=== PATIENT | female | born 1980 | race Caucasian/White ===

== ENCOUNTER → 2016-06-03 | Outpatient (CLI) | payer MEDICAID | LOC: FIMAGING 10:44 | PROVIDERS: ATTEND Obstetrics & Gynecology | DX: O99.283 Endocrine, nutritional and metabolic diseases complicating pregnancy, third trimester (principal); O24.013 Pre-existing type 1 diabetes mellitus, in pregnancy, third trimester; O99.213 Obesity complicating pregnancy, third trimester; O09.523 Supervision of elderly multigravida, third trimester; E10.9 Type 1 diabetes mellitus without complications; E03.9 Hypothyroidism, unspecified; Z3A.35 35 weeks gestation of pregnancy ==

== ENCOUNTER 2016-06-27 07:40 | Inpatient (IN) | payer MEDICAID ==
[2016-06-27] MEDS ORDERED: OLIVE OIL 118 ML BTL MISC PRN (08:15)
[2016-06-27] MEDS ORDERED: EPSOM SALT 454 GM TP PRN (08:15)
[2016-06-27] MEDS ORDERED: LR 1,000 ML IV PRN (08:15)
[2016-06-27] MEDS ORDERED: TERBUTALINE SULFATE 1 MG/ML VIAL IV PRN (08:15)
[2016-06-27] MEDS ORDERED: OXYTOCIN/RINGERS LACTATE 1,000 ML IV PRN (08:15)
[2016-06-27] MEDS ORDERED: LIDOCAINE 1% 30 ML SDV SC PRN (08:15)
[2016-06-27 09:16] LABS: % IMMATURE GRANULYOCYTES 0.8 % (0.0-1.1); ADD DIFF? NO; ADD MORPH? NO; ADD SCAN? NO; ATYPICAL LYMPHOCYTE FLAG 0 (0-99); FRAGMENT RBC FLAG 0 (0-99); HEMATOCRIT 39.1 % (38.0-47.0); HEMOGLOBIN 13.2 g/dL (12.6-16.3); LEFT SHIFT FLG 10 (0-99); LIPEMIA HEMOLYSIS FLAG 90 (0-99); MEAN CELL HEMOGLOBIN 30.3 pg (27.9-34.1); MEAN CELL HEMOGLOBIN CONCENTR. 33.8 g/dL (32.4-36.7); MEAN CELL VOLUME 89.9 fL (81.5-99.8); MEAN PLATELET VOLUME 12.3 fL (8.7-11.7); PLATELET CLUMPS FLAG 0 (0-99); PLATELET COUNT 182 10^3/uL (150-400); RED BLOOD CELL COUNT 4.35 10^6/uL (4.18-5.33)
[2016-06-27 10:00] LABS: GLUCOSE 106 mg/dL (70-100)
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
[2016-06-27] MEDS ORDERED: D5W LR 1,000 ML IV SCH (10:30)
[2016-06-27] MEDS ORDERED: INSULIN REGULAR HUMAN 100 UNIT in NS 100 ML IV SCH (10:30)
[2016-06-27] MEDS ORDERED: LR 500 ML IV PRN (10:33)
[2016-06-27] MEDS ORDERED: OXYTOCIN/RINGERS LACTATE 500 ML IV SCH (11:00)
--- NOTE | 2016-06-27 14:03 | OBPROG ---
OBG Progress Note Assessment/Plan: Assessment: 36 y/o @ 39 weeks with A2DM and SROM with augmentation of labor. Plan: Continue pitocin, pt may have an epidural in 30 minutes, 2 hours after her lunch. Some BP have been borderline with SBP 140's will add PIH labs to this am 's draw. status reassuring. 06/27/16 14:01 Subjective: Pt is feeling painful contractions but coping well now with NO. She has ambulated, tried hydrotherapy and position change. Objective: 06/27/16 09:00 06/27/16 09:45 Patient ABO/Rh AB POSITIVE 06/27/16 09:00 - SVE Dilation (cm): 5 Effacement (%): 90 Station: -1 Current Contraction Pattern: Regular (Q 2-3) FHR (bpm): 140 FHR Pattern Variability: Moderate FHR Category: 1 Membranes: AROM (pt had a bulging forebag, I ruptured for clear fluid) Amniotic Fluid Color: Clear ICD10 Worksheet Patient Problems: Problems Problem Status Onset Chest wall contusion Acute Closed fracture of left distal radius Acute Elbow contusion Acute
[2016-06-27 14:57] LABS: ALANINE AMINOTRANSFERASE 26 IU/L (9-52); ASPARTATE AMINOTRANSFERASE 22 IU/L (14-46); BILIRUBIN,TOTAL 0.4 mg/dL (0.1-1.4); BILIRUBIN-CONJUGATED 0.4 mg/dL (0.0-0.5); CREATININE 0.7 mg/dL (0.6-1.0); GLOMERULAR FILTRATION RATE > 60; LACTATE DEHYDROGENASE 387 IU/L (313-618); URIC ACID 5.7 mg/dL (2.5-6.8)
[2016-06-27] MEDS ORDERED: fentaNYL 2MCG/ML/BUP 0.1% RTU 100 ML BAG EP ONE (15:23)
[2016-06-27] MEDS ORDERED: PHENYLEPHRINE HCL 100 MCG/ML SYR ONE ×2 (15:23→15:34)
[2016-06-27] MEDS ORDERED: BUPIVACAINE 0.25% 30 ML SDV ONE (15:23)
[2016-06-27] MEDS ORDERED: fentaNYL 100 MCG/2 ML INJ ONE (15:24)
--- NOTE | 2016-06-27 16:24 | OBPROG ---
OBG Progress Note Assessment/Plan: Assessment: 36 y/o @ 39 weeks with A2DM and SROM with augmentation of labor. Plan: deceleration was likely secondary to post-epidural hypotension. Baby is now a Category 1 after O2, position change and phenylephrine. We will observe x 30-40 minutes and may re start pitocin if contractions have decreased. 06/27/16 14:01 06/27/16 16:25 Subjective: I was called emergently to patient's bedside due to deceleration with hypotension post-epidural. She was on her hands and knees and had received phenylephrine. She is beginning to feel less discomfort with contractions. Objective: 06/27/16 09:00 06/27/16 09:45 Patient ABO/Rh AB POSITIVE 06/27/16 09:00 Uric Acid 5.7 mg/dL (2.5-6.8) 06/27/16 09:45 Total Bilirubin 0.4 mg/dL (0.1-1.4) 06/27/16 09:45 Conjugated Bilirubin 0.4 mg/dL (0.0-0.5) 06/27/16 09:45 Unconjugated Bilirubin 0.0 mg/dL (0.0-1.1) 06/27/16 09:45 AST 22 IU/L (14-46) 06/27/16 09:45 ALT 26 IU/L (9-52) 06/27/16 09:45 Lactate Dehydrogenase 387 IU/L (313-618) 06/27/16 09:45 - SVE Dilation (cm): 6 Effacement (%): 90 Station: 0 Current Contraction Pattern: Regular (q3-4) FHR (bpm): 140 FHR Pattern Variability: Moderate FHR Category: 1 (currently cat 1, had a 6 minute decel to 60's) Membranes: SROM Amniotic Fluid Color: Clear ICD10 Worksheet Patient Problems: Problems Problem Status Onset Chest wall contusion Acute Closed fracture of left distal radius Acute Elbow contusion Acute
[2016-06-27] MEDS ORDERED: LIDOCAINE 1% 30 ML SDV ONE (17:30)
[2016-06-27] MEDS ORDERED: TERBUTALINE SULFATE 1 MG/ML VIAL ONE (17:31)
[2016-06-27] MEDS ORDERED: OLIVE OIL 118 ML BTL ONE (17:31)
[2016-06-27] MEDS ORDERED: AMMONIA AROMATIC 1 EACH AMP IH ONE (17:31)
[2016-06-27] MEDS ORDERED: OXYTOCIN 10 UNIT/ML VIAL ONE (17:32)
[2016-06-27] MEDS ORDERED: MISOPROSTOL 200 MCG TAB ONE (17:32)
[2016-06-27] MEDS ORDERED: PHENYLEPHRINE HCL 100 MCG/ML SYR IVP PRN (18:21)
[2016-06-27] MEDS ORDERED: ONDANSETRON 4 MG/2 ML VIAL IVP PRN ×2 (18:21→21:49)
[2016-06-27] MEDS ORDERED: LR 500 ML IV SCH (18:30)
[2016-06-27] MEDS ORDERED: fentaNYL 2MCG/ML/BUP 0.1% RTU 100 ML EP SCH (18:30)
--- NOTE | 2016-06-27 18:30 | PREANESOB ---
Obstetric Pre-Anesthesia Info - General Info Proposed Procedure: Labor and delivery with pitocin. : 3 Para: 0 WBD: 39 - Info Status: Full Term Monitors: External FHR Baseline (bpm): 150 FHR Pattern: Reassuring - Labor Status Cervical Dilation per last OB SVE: 5 Station per last OB SVE: 0 Amniotic Fluid Color: Clear Pitocin: In Use Indications for Labor Analgesia: Induction of Labor, Pain Control Labor Epidural: Proposed Anesthesia ROS: Induction of labor for spontaneous rupture of membranes. Gestational diabetes. Hypothyroid. Allergies/Adverse Reactions: Allergy/AdvReac Type Severity Reaction Status Date / Time erythromycin base Allergy Verified 06/16/15 22:51 sulfamethoxazole Allergy Verified 06/16/15 22:51 [From ] trimethoprim [From ] Allergy Verified 06/16/15 22:51 Home Medications: Medication Instructions Recorded Acyclovir 400 mg PO DAILY 06/27/16 Insulin Lispro [Humalog] 40 unit SQ DAILY 06/27/16 Levothyroxine [Synthroid 200 mcg 275 mcg PO DAILY06 06/27/16 (*)] Vit27&Calcium/Iron/FA 1 each PO DAILY 06/27/16 [ Rx 1 Tablet (RX)] Visit Medications: Generic Name Dose Route Start Last Admin Trade Name Freq PRN Reason Stop Dose Admin Diphenhydramine HCl 25 - 50 mg 06/27/16 18:21 Benadryl Injection IVP 12/24/16 18:20 Q6HRS PRN Itching Lactated Ringer's 1,000 mls @ 0 mls/hr 06/27/16 08:15 Lr IV 12/24/16 08:14 PRN PRN SEE PROTOCOL CONDITIONS Protocol Per Protocol Oxytocin/Lactated Ringer's 1,000 mls @ 150 mls/hr 06/27/16 08:15 Pitocin 20 Units/Lr (Premix) IV PRN PRN Post- bleeding Insulin Human Regular 100 unit 101 mls @ 0 mls/hr 06/27/16 10:30 / Sodium Chloride IV 12/24/16 10:29 CONT OLENA Protocol As Directed Dextrose/Lactated Ringer's 1,000 mls @ 125 mls/hr 06/27/16 10:30 D5w Lr IV 12/24/16 10:29 CONT OLENA Lactated Ringer's 500 mls @ 500 mls/hr 06/27/16 10:33 Lr IV PRN PRN Maternal Hypotension Oxytocin/Lactated Ringer's 500 mls @ 0 mls/hr 06/27/16 11:00 06/27/16 11:00 Pitocin 30 Units/Lr (Premix) IV 12/24/16 10:59 500 mls CONT OLENA Administration Protocol Per Protocol Fentanyl/Bupivacaine HCl 100 mls @ 0 mls/hr 06/27/16 18:30 Fentanyl/Bupivacaine/Ns 2 Mcg/Ml 0.1% (Premix EP 07/07/16 18:29 CONT OLENA Protocol As Directed Lactated Ringer's 500 mls @ 0 mls/hr 06/27/16 18:30 Lr IV 12/24/16 18:29 CONT OLENA As Directed Ibuprofen 600 mg 06/27/16 08:15 Motrin PO 12/24/16 08:14 Q6HRS PRN post , inflammation Lidocaine HCl 30 ml 06/27/16 08:15 Lidocaine Hcl 1% SC 12/24/16 08:14 ONCE PRN Episiotomy Magnesium Sulfate 454 gm 06/27/16 08:15 Epsom Salt TP 12/24/16 08:14 PRN PRN perineal discomfort Soledad Oil 118 ml 06/27/16 08:15 Sweet Oil MISC 12/24/16 08:14 ONCE PRN preneal massage Ondansetron HCl 4 mg 06/27/16 18:21 Zofran IVP 12/24/16 18:20 Q4HRS PRN Nausea/Vomiting, Can't Take PO Phenylephrine HCl 100 mcg 06/27/16 18:21 Jose-Synephrine IVP 12/24/16 18:20 .Q2M PRN Hypotension Terbutaline Sulfate 0.25 mg 06/27/16 08:15 Brethine IV 12/24/16 08:14 ONCE PRN Tachysystole Discontinued Medications Generic Name Dose Route Start Last Admin Trade Name Freq PRN Reason Stop Dose Admin Ammonia (Aromatic Spirit) Confirm 06/27/16 17:31 Ammonia Aromatic Administered 06/27/16 17:32 Dose 1 each IH .STK-MED ONE Bupivacaine HCl Confirm 06/27/16 15:23 Sensorcaine 0.25% Sdv Administered 06/27/16 15:24 Dose 30 ml .ROUTE .STK-MED ONE Ephedrine Sulfate Confirm 06/27/16 17:31 Ephedrine Sulfate Administered 06/27/16 17:32 Dose 50 mg .ROUTE .STK-MED ONE Fentanyl Confirm 06/27/16 15:24 Sublimaze Administered 06/27/16 15:25 Dose 100 mcg .ROUTE .STK-MED ONE Fentanyl/Bupivacaine HCl Confirm 06/27/16 15:23 Fentanyl/Bupivacaine/Ns 2 Mcg/Ml 0.1% (Premix Administered 06/27/16 15:24 Dose 100 ml EP .STK-MED ONE Lidocaine HCl Confirm 06/27/16 17:30 Lidocaine Hcl 1% Administered 06/27/16 17:31 Dose 30 ml .ROUTE .STK-MED ONE Misoprostol Confirm 06/27/16 17:32 Cytotec Administered 06/27/16 17:33 Dose 800 mcg .ROUTE .STK-MED ONE Soledad Oil Confirm 06/27/16 17:31 Sweet Oil Administered 06/27/16 17:32 Dose 118 ml .ROUTE .STK-MED ONE Oxytocin Confirm 06/27/16 17:32 Pitocin Administered 06/27/16 17:33 Dose 40 unit .ROUTE .STK-MED ONE Phenylephrine HCl Confirm 06/27/16 15:23 Jose-Synephrine Administered 06/27/16 15:24 Dose 1,000 mcg .ROUTE .STK-MED ONE Phenylephrine HCl Confirm 06/27/16 15:34 Jose-Synephrine Administered 06/27/16 15:35 Dose 1,000 mcg .ROUTE .STK-MED ONE Terbutaline Sulfate Confirm 06/27/16 17:31 Brethine Administered 06/27/16 17:32 Dose 1 mg .ROUTE .STK-MED ONE - Anesthesia History Response to Local Anesthetics: Normal - Social History Substance Use/Abuse: Denies - Focused Exam Blood Pressure: 147/83 Heart Rate: 125 Height/Weight (Nursing): Height 167.64 cm Weight 122.47 kg Physical Exam: Within normal limits. ASA Status: II Labs: 06/27/16 09:00 06/27/16 09:45 Patient ABO/Rh AB POSITIVE 06/27/16 09:00 Uric Acid 5.7 mg/dL (2.5-6.8) 06/27/16 09:45 Total Bilirubin 0.4 mg/dL (0.1-1.4) 06/27/16 09:45 Conjugated Bilirubin 0.4 mg/dL (0.0-0.5) 06/27/16 09:45 Unconjugated Bilirubin 0.0 mg/dL (0.0-1.1) 06/27/16 09:45 AST 22 IU/L (14-46) 06/27/16 09:45 ALT 26 IU/L (9-52) 06/27/16 09:45 Lactate Dehydrogenase 387 IU/L (313-618) 06/27/16 09:45 - Plan Anesthetic Plan: CSE Consent Signed and on Chart: Yes Patient/Guardian Understands and Agrees to Plan: Yes
--- NOTE | 2016-06-27 18:57 | POSTANESTH ---
Post Anesthetic Evaluation Cardiovascular Status: Normal, Stable Respiratory Status: Normal, Stable, Similar to Pre-op Cond. Level of Consciousness/Mental Status: Can Participate in Eval, Alert and Oriented Pain Control: Adequate, Prn Tx Ordered Nausea/Vomiting Control: Adequate, Prn Tx Ordered Complications Possibly Related to Anesthesia: None Noted (Tolerated CSE well, stable after phenylephrine x 2, comfortable.)
[2016-06-27] MEDS ORDERED: ACETAMINOPHEN 500 MG TAB PO ONE (19:30)
--- NOTE | 2016-06-27 22:23 | OBPROG ---
OBG Progress Note Assessment/Plan: Assessment: 36 y/o @ 39 weeks with A2DM and SROM with augmentation of labor. Plan: Pt and baby are stable now and she is making good progress on pitocin. Will re check in 1 hour, status reassuring. 06/27/16 14:01 06/27/16 16:25 06/27/16 22:22 Subjective: Pt is comfortable with her epidural and is breathing better sitting upright. Objective: 06/27/16 09:00 06/27/16 09:45 Patient ABO/Rh AB POSITIVE 06/27/16 09:00 Uric Acid 5.7 mg/dL (2.5-6.8) 06/27/16 09:45 Total Bilirubin 0.4 mg/dL (0.1-1.4) 06/27/16 09:45 Conjugated Bilirubin 0.4 mg/dL (0.0-0.5) 06/27/16 09:45 Unconjugated Bilirubin 0.0 mg/dL (0.0-1.1) 06/27/16 09:45 AST 22 IU/L (14-46) 06/27/16 09:45 ALT 26 IU/L (9-52) 06/27/16 09:45 Lactate Dehydrogenase 387 IU/L (313-618) 06/27/16 09:45 Temp Pulse Resp BP Pulse Ox 125 H 147/83 H 06/27/16 18:54 06/27/16 18:54 - SVE Dilation (cm): 9 Effacement (%): 100 Station: +1 Current Contraction Pattern: Regular (Q 4) FHR (bpm): 150 FHR Pattern Variability: Moderate FHR Category: 1 Membranes: SROM Amniotic Fluid Color: Clear ICD10 Worksheet Patient Problems: Problems Problem Status Onset Chest wall contusion Acute Closed fracture of left distal radius Acute Elbow contusion Acute
[2016-06-28] MEDS ORDERED: fentaNYL 100 MCG/2 ML INJ ONE ×2 (00:13→03:31)
[2016-06-28] MEDS: GENTAMICIN 80 MG/NACL 100 ML IV SCH ×3 (00:39→16:40)
[2016-06-28] MEDS: AMPICILLIN SODIUM 2 GM in NS 100 ML IV SCH ×4 (00:40→19:24)
[2016-06-28] MEDS ORDERED: LR 500 ML IV ONE (02:10)
[2016-06-28] MEDS ORDERED: ceFAZolin 2 GM/DEXTROSE 100 ML IV ONE (02:10)
[2016-06-28] MEDS ORDERED: HEMABATE 250 MCG/1 ML AMP IM ONE (02:13)
[2016-06-28] MEDS ORDERED: LR 1,000 ML IV SCH (02:30)
[2016-06-28] MEDS ORDERED: LIDO/EPI 2% **for epidural** 20 ML SDV ONE (03:31)
[2016-06-28] MEDS ORDERED: morphINE PF 5 MG/10 ML INJ ONE (03:52)
[2016-06-28] MEDS ORDERED: ONDANSETRON 4 MG/2 ML VIAL ONE (04:09)
[2016-06-28 04:31] LABS: BASE EXCESS CORD -4.2 mEq/L (-13.6--3.2); CORD BLOOD PCO2 69.4 mmHg (37-60); PH ARTERIAL CORD BLOOD 7.2 (7.10-7.37)
[2016-06-28 04:34] LABS: PH VENOUS CORD BLOOD 7.29 (7.20-7.42)
[2016-06-28] MEDS ORDERED: PROPOFOL 200 MG/20 ML VIAL ONE (04:43)
[2016-06-28] MEDS ORDERED: SIMETHICONE 80 MG TAB CHEW PO PRN (05:23)
--- NOTE | 2016-06-28 05:23 | OBPROC ---
- Delivery Pre-op Diagnoses: IUP @ 39 weeks, arrest of dilation and chorioamnionitis Post-op Diagnoses: same Procedure: Primary Surgeon: Cathleen Dorsey Fisher Diving: Vy Rodney Anesthesiologist: Jimmy Rodriguez Card Cutter Helper/TELECOM COORDINATOR: Xiomara Chaves Anesthesia: Epidural Complications: Other (Specify) (chorioamnionitis, direct OP presentation requiring inferior extension of incision for delivery) Specimen(s)/Path: Placenta IV Fluid (ml): 2,200 EBL: 1200 Cord Gases: Cord Gases Cord Blood PCO2 69.4 mmHg (37-60) H 06/28/16 04:23 Cord Base Excess -4.2 mEq/L (-13.6--3.2) 06/28/16 04:23 Cord ABG pH 7.20 (7.10-7.37) 06/28/16 04:23 Cord VBG pH 7.29 (7.20-7.42) 06/28/16 04:23 - [place] Info A Delivery Date: 06/28/16 Delivery Time: 04:16 Sex of Infant: Female Weight (gm): 4444 g Score (1 Min): 1 Score (5 Min): 8
[2016-06-28] MEDS ORDERED: LACTULOSE 20 GM/30 ML UDCUP PO PRN (05:24)
[2016-06-28] MEDS ORDERED: BISACODYL 10 MG SUPP PR PRN (05:24)
[2016-06-28] MEDS ORDERED: MAGNESIUM HYDROXIDE 30 ML UDCUP PO PRN (05:24)
[2016-06-28] MEDS ORDERED: POLYETHYLENE GLYCOL 3350 17 GM PKT PO PRN (05:24)
[2016-06-28] MEDS ORDERED: PHENYLEPHRINE HCL 100 MCG/ML SYR IVP PRN (05:27)
[2016-06-28] MEDS ORDERED: NALOXONE HCL 0.4 MG/ML INJ IVP PRN (05:27)
--- NOTE | 2016-06-28 05:36 | POSTANESTH ---
Post Anesthetic Evaluation Cardiovascular Status: Normal, Stable Respiratory Status: Normal, Stable, Similar to Pre-op Cond. Level of Consciousness/Mental Status: Can Participate in Eval, Alert and Oriented Pain Control: Adequate, Prn Tx Ordered Nausea/Vomiting Control: Adequate, Prn Tx Ordered Complications Possibly Related to Anesthesia: None Noted (Epidural dosed for C Section, BP treated, comfortable for surgery, to PACU, no pain or nausea.)
--- NOTE | 2016-06-28 05:53 | GOP ---
[f rep st] OPERATIVE REPORT DATE OF OPERATION: 06/28/2016 SURGEON: Cathleen Dorsey MD STEAMTABLE WORKER: Vy Rodney, certified nurse assistant plant control operator. ANESTHESIA: Epidural anesthesia. ANESTHESIOLOGIST: Jimmy Rodriguez MD. PREOPERATIVE DIAGNOSIS: Intrauterine at 39 weeks' gestation with arrest of dilation and c horioamnionitis. POSTOPERATIVE DIAGNOSIS: Intrauterine at 39 weeks' gestation with arrest of dilation and chorioamnionitis. PROCEDURE PERFORMED: Primary low transverse section. FINDINGS: Viable female. Apgars of 1 and 8. Weight of 4444 g. INDICATIONS: The patient is a 36-year-old, 3, para 0-0-2-0, with a last menstrual period of 09/27/2015, and an EDC of 07/03/2016, which was set by a first trimester ultrasound. She has had a complicated course. Risk factors include AMA, Destinee's with poorly controlled thyroid function, A2 diabetes on increasing doses of insulin, history of HSV2 and abnormal Pap. She was ronnie eduled for induction of labor on 06/28, and she presented on the morning of the with s pontaneous rupture of membranes for clear fluid. She was admitted, started on Pitocin for augmentat ion of labor. She received an epidural for pain control and had a slow cervical progression. Inter nal monitors were placed and she slowly progressed to 9 cm. During the course of her labor, she spi ked temperatures to 38 ad was started on amp and gent. Baby developed tachycardia to the 170s . Mom had maternal tachycardia to the 140s and she did not progress past 2 cm. The decision was ma libertad to proceed with for arrest of dilation and chorio. Patient was consented for the proce dure. She understood the risks and benefits. The risks including bleeding, infection, damage to in ternal organs, uterus, tubes, ovaries, bowel, bladder, nerves, blood vessels, ureters, risk of injury, risk of hemorrhage requiring blood transfusion, hysterectomy, or . She understood the se risks and benefits, agreed to proceed. DESCRIPTION OF PROCEDURE: PROCEDURE: Patient was taken to the operating room where her epidural was dosed and found to be duglas quate. Incision was made with a knife and the incision was carried down to the underlying layer of fascia with the Bovie. Fascia was incised in the midline. Fascial incision was extended laterally with Hernandez scissors. Superior aspect of the fascial incision was grasped with the Vandana clamps, arcelia vated, and the rectus muscles were dissected off sharply. Inferior aspect of the fascial incision w as grasped with Vandana clamps, elevated, and the rectus muscles were dissected off sharply. Rectus muscles were in the midline. Peritoneum was entered sharply. Peritoneal incision was ext ended superiorly and inferiorly with good visualization of the bladder. Bladder blade was inserted. Vesicouterine peritoneum was grasped with the pickups, entered sharply with Metzenbaum scissors. The incision was extended laterally, and bladder flap was created digitally. Bladder blade was rein serted. The uterus was incised with the knife, extended laterally with bandage scissors. The infan t was in direct occiput posterior presentation, low into the mom's pelvis. Mom had a narrow pelvis and there was no room to deflect the head for delivery. I extended the uterine incision from the hy sterotomy down toward the cervix to allow for room. The infant was then delivered atraumatically. The mouth and nose were bulb suctioned. The cord was clamped and cut. The was handed off to the waiting nurse practitioners. Cord blood gas, cord blood culture and cord bloods were sent. The placenta was removed manually. The uterus was exteriorized, cleared of all clots and silas ris. The inferior extension of the incision was repaired first with 0 Vicryl and then the hysteroto my incision was repaired with 0 Vicryl in a running, imbricated double suture x2. Good hemostasis w as obtained. The uterus was returned to the abdomen. Gutters were cleared of all clots and debris. Reinspection of the uterine incision again assured hemostasis. Rectus muscles were approximated w ith 2-0 Vicryl in an inverted mattress fashion. Fascia was closed with #1 Vicryl, subcutaneous laye r was closed with 2-0 Vicryl and the skin was closed with 4-0 Vicryl. Patient tolerated the procedu re well. Sponge, laparotomy, needle, and instrument counts were correct x2. Patient went to the re covery room in good condition. Estimated blood loss for the procedure was 1200 cc. Fluid replaceme nt was 2200 cc. Urine output was 500 cc. /[id number]/MODL
[2016-06-28] MEDS ORDERED: AMPICILLIN SODIUM 2 GM in NS 100 ML IV SCH (06:00)
[2016-06-28] MEDS: KETOROLAC 30 MG/1 ML SDV IVP PRN ×3 (06:00→18:30)
[2016-06-28] MEDS: LEVOTHYROXINE 75 MCG TAB PO SCH (08:41)
[2016-06-28] MEDS: LEVOTHYROXINE 200 MCG TAB PO SCH (08:42)
[2016-06-28] MEDS ORDERED: INSULIN LISPRO 40 UNIT SQ SCH (09:00)
[2016-06-28] MEDS: HYDROCODONE/APAP 5/325 TAB PO PRN ×3 (10:12→23:05)
[2016-06-28] MEDS: SENNOSIDES/DOCUSATE SODIUM TAB PO SCH ×2 (10:29→19:22)
[2016-06-29] MEDS: KETOROLAC 30 MG/1 ML SDV IVP PRN (01:11)
[2016-06-29] MEDS: GENTAMICIN 80 MG/NACL 100 ML IV SCH (01:11)
[2016-06-29] MEDS: AMPICILLIN SODIUM 2 GM in NS 100 ML IV SCH (02:28)
[2016-06-29] MEDS ORDERED: LEVOTHYROXINE 200 MCG TAB PO SCH (06:00)
[2016-06-29] MEDS: IBUPROFEN 600 MG TAB PO PRN ×3 (08:21→21:15)
[2016-06-29] MEDS: HYDROCODONE/APAP 5/325 TAB PO PRN ×5 (08:22→20:32)
[2016-06-29] MEDS: LEVOTHYROXINE 200 MCG TAB PO SCH (08:22)
[2016-06-29] MEDS: LEVOTHYROXINE 75 MCG TAB PO SCH (08:22)
--- NOTE | 2016-06-29 10:39 | SOAPPROG ---
SOAP Progress Note Assessment/Plan: Assessment: 36y/o postpatum day 1 s/p primary C/S d/t arrest of dilation & chorio Anemia Plan: ABX x24h for chorio Start PO iron BID for anemia consult per pt req Routine PP care 06/29/16 10:36 Subjective: Pt resting in bed, infant in NICU. Reports breast-pumping going well, would like assistance. Lochia light. Pain well-controlled. Tolerating regular diet. Voiding without difficulty, denies BM. Objective: Vital Signs Temp Pulse Resp BP Pulse Ox 36.9 C 112 H 16 133/84 H 99 06/29/16 08:00 06/29/16 08:00 06/29/16 08:00 06/29/16 08:00 06/29/16 08:00 Laboratory Results 06/29/16 09:15 06/27/16 09:45 06/28/16 06/29/16 06/30/16 05:59 05:59 05:59 Intake Total 1100 Output Total 1500 1700 1700 Balance -1500 -600 -1700 Physical Exam - Physical Exam General Appearance: alert, no apparent distress Respiratory: lungs clear, normal breath sounds Cardiac/Chest: regular rate, rhythm Abdomen: non-tender, soft, other (fundus firm @U; incision & steri-strips clean , dry, intact, well-approximated) Pelvic Exam: vaginal bleeding (light) Skin: normal color, warm/dry Extremities: normal range of motion, pedal edema (+2 BLE edema) Neuro/Psych: alert, normal mood/affect, oriented x 3 ICD10 Worksheet Patient Problems: Problems Problem Status Onset Chest wall contusion Acute Closed fracture of left distal radius Acute Elbow contusion Acute
[2016-06-29] MEDS ORDERED: MEASLES,MUMPS&RUBELLA VACC/PF 0.5 ML VIAL SC ONE ×2 (10:52→20:30)
[2016-06-29] MEDS: SENNOSIDES/DOCUSATE SODIUM TAB PO SCH ×2 (13:26→19:52)
[2016-06-29] MEDS: IRON POLYSAC/IRON HEME 28 MG TAB PO SCH ×2 (13:26→21:02)
[2016-06-30] MEDS: HYDROCODONE/APAP 5/325 TAB PO PRN ×8 (00:24→23:54)
[2016-06-30] MEDS: IBUPROFEN 600 MG TAB PO PRN ×3 (03:17→19:24)
--- NOTE | 2016-06-30 08:01 | OBPROG ---
OBG Progress Note Assessment/Plan: Assessment: 1) s/p PCS secondary to arrest of dilation, chorio POD # 2 - pt is stable 2) Anemia - on iron, asymptomatic 3) Sleep apnea 4) Hypothyroidism - stable on meds 5) GMDA2 - BS stable Plan: Continue routine post-op care Encourage ambulation and IS Continue iron, bowel protocol Pt may shower today Plan for d/c home in 48 hrs 06/30/16 08:01 Subjective: Pt seen and examined. Doing well, no complaints. Pain is well controlled with [place] and Motrin. She is OOb, gracia reg diet, voiding without difficulty, passing flatus-no BM yet. Moderate lochia. Denies any f/c/n/v/CP or SOB. No calf tenderness. Baby is in NICU. not going well, trying to pump. Objective: 06/29/16 09:15 06/27/16 09:45 Patient ABO/Rh AB POSITIVE 06/27/16 09:00 Uric Acid 5.7 mg/dL (2.5-6.8) 06/27/16 09:45 Total Bilirubin 0.4 mg/dL (0.1-1.4) 06/27/16 09:45 Conjugated Bilirubin 0.4 mg/dL (0.0-0.5) 06/27/16 09:45 Unconjugated Bilirubin 0.0 mg/dL (0.0-1.1) 06/27/16 09:45 AST 22 IU/L (14-46) 06/27/16 09:45 ALT 26 IU/L (9-52) 06/27/16 09:45 Lactate Dehydrogenase 387 IU/L (313-618) 06/27/16 09:45 Temp Pulse Resp BP Pulse Ox 36.2 C 106 H 16 142/93 H 97 06/29/16 20:00 06/29/16 20:00 06/29/16 20:00 06/29/16 20:00 06/29/16 20:00 Uterine Position/Fundal Height: Umbilicus -2 Uterine Tone: Firm - Physical Exam General Appearance: WD/WN, alert, no apparent distress Respiratory: lungs clear, normal breath sounds Cardiac/Chest: regular rate, rhythm Abdomen: normal bowel sounds, non-tender, soft, flatus (+), incision (C/D/I with steri strips) Genitourinary: lochia (moderate) Extremities: non-tender, normal inspection Neuro/Psych: alert, normal mood/affect, oriented x 3 ICD10 Worksheet Patient Problems: Problems Problem Status Onset Hypothyroidism affecting Acute Hypothyroidism Acute Status post primary low transverse section Acute Arrest of dilation, delivered, current hospitalization Acute
[2016-06-30] MEDS: LEVOTHYROXINE 200 MCG TAB PO SCH (08:18)
[2016-06-30] MEDS: LEVOTHYROXINE 75 MCG TAB PO SCH (08:18)
[2016-06-30] MEDS: IRON POLYSAC/IRON HEME 28 MG TAB PO SCH ×2 (08:19→19:23)
[2016-06-30] MEDS: SENNOSIDES/DOCUSATE SODIUM TAB PO SCH ×2 (08:19→19:23)
[2016-07-01] MEDS: IBUPROFEN 600 MG TAB PO PRN ×4 (03:18→22:20)
[2016-07-01] MEDS: HYDROCODONE/APAP 5/325 TAB PO PRN ×6 (03:19→22:20)
[2016-07-01] MEDS: LEVOTHYROXINE 200 MCG TAB PO SCH (06:10)
[2016-07-01] MEDS: LEVOTHYROXINE 75 MCG TAB PO SCH (06:10)
[2016-07-01] MEDS: SENNOSIDES/DOCUSATE SODIUM TAB PO SCH ×2 (09:11→22:19)
[2016-07-01] MEDS: IRON POLYSAC/IRON HEME 28 MG TAB PO SCH ×2 (09:12→22:20)
--- NOTE | 2016-07-01 11:27 | SOAPPROG ---
SOAP Progress Note Assessment/Plan: Assessment:oral cold sore complain well pain fairly well managed ff2u scant rubra lochia diminshed bs passing gas but minimally edema in LE 2+ bilaterally incision well approximated ss in place lower o2 sats at night voiding without difficulty Plan:respiratory assessement, zovirax at patient request for oral cold sore, routine pain medication to keep up on pain relief, continued bowel protocol today 07/01/16 11:24 Subjective: Feeling an oral cold sore coming on requesting zovirax cream topical application . Some respriatory difficulties at night pain fairly well managed Objective: Vital Signs Temp Pulse Resp BP Pulse Ox 36.4 C 103 H 18 129/88 H 97 07/01/16 07:50 07/01/16 07:50 07/01/16 07:50 07/01/16 07:50 07/01/16 07:50 Laboratory Results 06/29/16 09:15 06/27/16 09:45 06/30/16 07/01/16 07/02/16 05:59 05:59 05:59 Output Total 1700 Balance -1700 - Time Spent With Patient Time Spent With Patient: 15 minutes - Pending Discharge Pending Discharge Within 24 Hours: Yes Pending Discharge Date: 07/02/16 Pending Discharge Time: 11:00 ICD10 Worksheet Patient Problems: Problems Problem Status Onset Arrest of dilation, delivered, current hospitalization Acute Hypothyroidism affecting Acute Status post primary low transverse section Acute Hypothyroidism Acute
[2016-07-01 21:23] VITALS: RESP 18; TEMP 98
[2016-07-01] MEDS: DOCUSATE SODIUM 100 MG CAP PO PRN (22:20)
[2016-07-02] MEDS: HYDROCODONE/APAP 5/325 TAB PO PRN ×3 (04:29→13:55)
[2016-07-02] MEDS: IBUPROFEN 600 MG TAB PO PRN (04:29)
[2016-07-02] MEDS: LEVOTHYROXINE 75 MCG TAB PO SCH (07:53)
[2016-07-02] MEDS: LEVOTHYROXINE 200 MCG TAB PO SCH (07:53)
[2016-07-02] MEDS: DOCUSATE SODIUM 100 MG CAP PO PRN (07:55)
[2016-07-02] MEDS: SENNOSIDES/DOCUSATE SODIUM TAB PO SCH (07:55)
[2016-07-02] MEDS: IRON POLYSAC/IRON HEME 28 MG TAB PO SCH (07:55)
[2016-07-02 08:43] VITALS: BP 141/98; PULSE 120; O2SAT 96
--- NOTE | 2016-07-02 10:50 | SOAPPROG ---
SOAP Progress Note Assessment/Plan: Assessment: pod# 4 s/p PLTCS' breast feeding anemia baby in NICU Plan: discharge instructions and post instructions 07/02/16 10:49 Objective: Vital Signs Temp Pulse Resp BP Pulse Ox 36.6 C 120 H 18 141/98 H 96 07/02/16 08:00 07/02/16 08:00 07/02/16 08:00 07/02/16 08:00 07/02/16 08:00 Laboratory Results 06/29/16 09:15 06/27/16 09:45 Physical Exam - Physical Exam General Appearance: WD/WN, alert, no apparent distress Respiratory: chest non-tender, lungs clear, normal breath sounds Cardiac/Chest: normal peripheral pulses, regular rate, rhythm Abdomen: normal bowel sounds, non-tender, soft, other (fundus firm and non tender) Skin: normal color, warm/dry, other (incision clean dry and intact) Extremities: normal range of motion, non-tender, normal inspection, normal capillary refill Neuro/Psych: no motor/sensory deficits, alert, normal mood/affect, oriented x 3 ICD10 Worksheet Patient Problems: Problems Problem Status Onset Arrest of dilation, delivered, current hospitalization Acute Hypothyroidism affecting Acute Status post primary low transverse section Acute Hypothyroidism Acute
== END 2016-07-02 15:00 | disposition home or self-care (01) | DRG 765 ==
LOC: FLD 07:40 → OBSVTOIN 08:15 → FLD 06-28 06:31 → FOB 06-28 07:40
PROVIDERS: ADMIT Obstetrics & Gynecology; ATTEND Obstetrics & Gynecology
PROC: 10907ZC Drainage of Amniotic Fluid, Therapeutic from Products of Conception, Via Natural or Artificial Opening (ICD-10-PCS; 2016-06-27)
PROC: 10D00Z1 Extraction of Products of Conception, Low, Open Approach (ICD-10-PCS; principal; 2016-06-28)
DX: O62.0 Primary inadequate contractions (principal); O41.1230 Chorioamnionitis, third trimester, not applicable or unspecified; O24.013 Pre-existing type 1 diabetes mellitus, in pregnancy, third trimester; O99.283 Endocrine, nutritional and metabolic diseases complicating pregnancy, third trimester; E03.9 Hypothyroidism, unspecified; O99.89 Other specified diseases and conditions complicating pregnancy, childbirth and the puerperium; G47.33 Obstructive sleep apnea (adult) (pediatric); Z3A.39 39 weeks gestation of pregnancy; Z37.0 Single live birth
CPT/HCPCS: 82947-QW; J0290; J0690; J1580; J1815; J1885; J2274; J2370; J2405; J2590; J2704; J3010; J3105

== ENCOUNTER 2016-07-03 10:14 | Observation (INO) | payer MEDICAID ==
[2016-07-03 11:44] LABS: % IMMATURE GRANULYOCYTES 1.5 % (0.0-1.1); ABSOLUTE IMMATURE GRANULOCYTES 0.14 10^3/uL (0.00-0.10); ADD DIFF? NO; ADD MORPH? NO; ADD SCAN? NO; ATYPICAL LYMPHOCYTE FLAG 10 (0-99); FRAGMENT RBC FLAG 0 (0-99); HEMATOCRIT 34.2 % (38.0-47.0); HEMOGLOBIN 11.3 g/dL (12.6-16.3); LEFT SHIFT FLG 20 (0-99); LIPEMIA HEMOLYSIS FLAG 80 (0-99); MEAN CELL VOLUME 90.7 fL (81.5-99.8); MEAN PLATELET VOLUME 10.4 fL (8.7-11.7); PLATELET CLUMPS FLAG 0 (0-99); PLATELET COUNT 259 10^3/uL (150-400); RED BLOOD CELL COUNT 3.77 10^6/uL (4.18-5.33); RED CELL DISTRIBUTION WIDTH 14.9 % (11.5-15.2)
--- NOTE | 2016-07-03 11:55 | EDPHY ---
H & P Stated Complaint: r maria isabel renner/delivered friday by csect Time Seen by Provider: 07/03/16 10:33 HPI/ROS: CHIEF COMPLAINT: Abdominal pain HISTORY OF PRESENT ILLNESS: This is a 36-year-old female who is postop day 5 status post Caesarean section at 39 weeks for arrest of dilatation and chorioamnionitis. She was discharged from the OBGYN service yesterday. Her infant girl remains in the NICU, receiving antibiotics. The patient herself was doing quite well post . She had been up and about, was able to lift her baby out of the crib and had been caring for her in the hospital. However last night, when picking up her infant, she experienced burning right lower quadrant pain, well localized. She took 2 [place] at 4:00 a.m. and again at 8:00 a.m. this morning. This pain has persisted. She notes some warmth and redness around her incision. The pain is worse with movement. She has not been aware of fever. She has not had nausea, vomiting, or diarrhea. She moved her bowels yesterday morning and possibly last evening (she can't recall). She had 1 episode of dysuria this morning, had not had any prior to that. She was referred to the emergency department by the OBGYN service. REVIEW OF SYSTEMS: A ten point review of systems was performed and is negative with the exception of the items mentioned in the HPI. Recent cough, mild, no shortness of breath. Source: Patient Exam Limitations: No limitations - Personal History LMP (Females 10-55): Over 28 Days Ago Current Tetanus/Diphtheria Vaccine: Yes - Medical/Surgical History Hx Asthma: No Hx Chronic Respiratory Disease: No Hx Diabetes: No Hx Cardiac Disease: No Hx Renal Disease: No Hx Cirrhosis: No Hx Alcoholism: No Hx HIV/AIDS: No Hx Splenectomy or Spleen Trauma: No Other PMH: hypothyroid. HSV. SURGERY LEFT WRIST LAST YEAR 2015. GESTATIONAL DIABETIC ON INSULIN - Social History Smoking Status: Never smoked Additional Social History: She is here with her sister. This is her 1st . - Physical Exam Exam: General Appearance: Alert. Vital signs reviewed. Blood pressure 153/108. Heart rate 106. Eyes: Pupils equal and round, no conjunctival injection, no discharge. Anicteric. ENT, Mouth: Mucous membranes are moist, no oropharyngeal erythema or edema. Neck: No lymphadenopathy, supple. Respiratory: Lungs are clear to auscultation; no wheezes, rales, or rhonchi. Cardiovascular: Tachycardic; no murmur, rub, or gallop. Gastrointestinal: Abdomen is soft with right lower quadrant tenderness that corresponds to the lateral aspect of her section incision. There is some matheus-incisional erythema and warmth. The incision is intact. There is no drainage., no masses or organomegaly, bowel sounds normal. Skin: Warm and dry, no rashes on exposed skin, normal color. Back: Nontender to palpation over the thoracolumbar spine. No CVAT. Extremities: No lower extremity edema, no calf tenderness or swelling. Neurological: Alert and oriented. Moving all four extremities easily and equally. Psychiatric: Normal affect. Constitutional: Initial Vital Signs Temperature (C) 36.8 C 07/03/16 10:19 Heart Rate 106 H 07/03/16 10:19 Respiratory Rate 20 07/03/16 10:19 Blood Pressure 153/108 H 07/03/16 10:19 O2 Sat (%) 96 07/03/16 10:19 O2 Delivery Mode Room Air Allergies/Adverse Reactions: erythromycin base Allergy (Verified 07/03/16 10:18) sulfamethoxazole [From ] Allergy (Verified 07/03/16 10:18) trimethoprim [From ] Allergy (Verified 07/03/16 10:18) Home Medications: Medication Instructions Recorded Acyclovir 400 mg PO DAILY 06/27/16 Levothyroxine [Synthroid 200 mcg 275 mcg PO DAILY06 06/27/16 (*)] Vit27&Calcium/Iron/FA 1 each PO DAILY 06/27/16 [] Ibuprofen [Motrin (*)] 600 mg PO Q6HRS PRN #30 tab 07/02/16 Iron Polysacch/Iron Heme Polyp 28 mg PO BID #0 tab 07/02/16 [Bifera] Docusate Sodium [Colace 100 MG (*)] 100 mg PO BID 07/03/16 Hydrocodone/APAP 5/325 [[place] 2 tab PO Q4 PRN 07/03/16 5/325 (*)] Levothyroxine [Synthroid 75 mcg 275 mcg PO DAILY06 07/03/16 (*)] Polyethylene Glycol 3350 [Miralax 17 gm PO BID 07/03/16 17 gm (*)] Medical Decision Making - Diagnostics Imaging: Imaging Impressions Abdomen CT 07/03/16 11:48 Impression: 1. No CT findings for appendicitis. 2. Moderate constipation. 3. Enlarged uterus. Thickening of the lower anterior abdominal wall and edema in the subcutaneous fat, which could be secondary to the postsurgical change and section. No evidence for focal fluid collection to indicate abscess. Results called and discussed with Dr. Floridalma Hurtado, on July 03, 2016 at 1340 hours. ED Course/Re-evaluation: 36-year-old status post section with new onset right lower quadrant pain. The pain is worsened with movement. CT scan of the abdomen does not show abscess or appendicitis. Laboratory studies indicate that she has a urinary tract infection. On examination her surgical incision is mildly erythematous and warm. I am not convinced that a urinary tract infection and/ or a mild cellulitis account for her pain and I am recommending observation to see if signs or symptoms evolve, indicating another process or a worsening of UTI or cellulitis. She is given ceftriaxone IV in the emergency department. She will be admitted to mom baby by Dr. Freitas. Differential Diagnosis: I considered a differential diagnosis that includes but is not limited to postoperative abscess, cellulitis, pyelonephritis, urinary tract infection, and appendicitis. - Data Points Laboratory Results: Laboratory Results 07/03/16 11:25 07/03/16 11:25 07/03/16 07/03/16 07/03/16 12:00 11:25 11:25 WBC 9.46 10^3/uL 10^3/uL (3.80-9.50) RBC 3.77 10^6/uL L 10^6/uL (4.18-5.33) Hgb 11.3 g/dL L g/dL (12.6-16.3) Hct 34.2 % L % (38.0-47.0) MCV 90.7 fL fL (81.5-99.8) MCH 30.0 pg pg (27.9-34.1) MCHC 33.0 g/dL g/dL (32.4-36.7) RDW 14.9 % % (11.5-15.2) Plt Count 259 10^3/uL 10^3/uL (150-400) MPV 10.4 fL fL (8.7-11.7) Neut % (Auto) 70.3 % % (39.3-74.2) Lymph % (Auto) 15.9 % % (15.0-45.0) Barnes % (Auto) 8.6 % % (4.5-13.0) Eos % (Auto) 3.4 % % (0.6-7.6) Baso % (Auto) 0.3 % % (0.3-1.7) Nucleat RBC Rel Count 0.0 % % (0.0-0.2) Absolute Neuts (auto) 6.66 10^3/uL H 10^3/uL (1.70-6.50) Absolute Lymphs (auto) 1.50 10^3/uL 10^3/uL (1.00-3.00) Absolute Monos (auto) 0.81 10^3/uL H 10^3/uL (0.30-0.80) Absolute Eos (auto) 0.32 10^3/uL 10^3/uL (0.03-0.40) Absolute Basos (auto) 0.03 10^3/uL 10^3/uL (0.02-0.10) Absolute Nucleated RBC 0.00 10^3/uL 10^3/uL (0-0.01) Immature Gran % 1.5 % H % (0.0-1.1) Immature Gran # 0.14 10^3/uL H 10^3/uL (0.00-0.10) Sodium 140 mEq/L mEq/L (134-144) Potassium 4.4 mEq/L mEq/L (3.5-5.2) Chloride 108 mEq/L mEq/L (97-110) Carbon Dioxide 20 mEq/l L mEq/l (22-31) Anion Gap 12 mEq/L mEq/L (8-16) BUN 11 mg/dL mg/dL (7-23) Creatinine 0.8 mg/dL mg/dL (0.6-1.0) Estimated GFR > 60 Glucose 105 mg/dL H mg/dL (70-100) Calcium 9.1 mg/dL mg/dL (8.5-10.4) Total Bilirubin 0.5 mg/dL mg/dL (0.1-1.4) Conjugated Bilirubin 0.3 mg/dL mg/dL (0.0-0.5) Unconjugated Bilirubin 0.2 mg/dL mg/dL (0.0-1.1) AST 47 IU/L H IU/L (14-46) ALT 80 IU/L H IU/L (9-52) Alkaline Phosphatase 307 IU/L H IU/L (38-126) Total Protein 6.4 g/dL g/dL (6.3-8.2) Albumin 3.1 g/dL L g/dL (3.5-5.0) Lipase 161.0 IU/L IU/L (23-300) Urine Color YELLOW Urine Appearance CLEAR Urine pH 7.0 (5.0-7.5) Ur Specific [place] 1.011 (1.002-1.030) Urine Protein NEGATIVE (NEGATIVE) Urine Ketones NEGATIVE (NEGATIVE) Urine Blood 3+ H (NEGATIVE) Urine Nitrate NEGATIVE (NEGATIVE) Urine Bilirubin NEGATIVE (NEGATIVE) Urine Urobilinogen NEGATIVE EU EU (0.2-1.0) Ur Leukocyte Esterase 2+ H (NEGATIVE) Urine RBC 25-50 /hpf H /hpf (0-3) Urine WBC 50-182 /hpf H /hpf (0-3) Ur Epithelial Cells 1+ /lpf /lpf (NONE-1+) Urine Bacteria TRACE /hpf H /hpf (NONE SEEN) Urine Mucus TRACE /lpf /lpf (NONE-1+) Ur Culture Indicated? INDICATED H (NI) Urine Glucose NEGATIVE (NEGATIVE) Medications Given: Discontinued Medications Ceftriaxone Sodium/Dextrose (Rocephin 1 Gm (Premix)) 50 mls @ 100 mls/hr IV EDNOW ONE PRN Reason: Protocol Stop: 07/03/16 14:48 Last Admin: 07/03/16 14:31 Dose: 50 mls Ketorolac Tromethamine (Toradol) 30 mg IVP EDNOW ONE Stop: 07/03/16 12:32 Last Admin: 07/03/16 12:40 Dose: 30 mg Departure - Departure Disposition: [facility] Acute Clinical Impression: Abdominal pain Qualifiers: Abdominal location: right lower quadrant Qualified Code(s): R10.31 - Right lower quadrant pain Urinary tract infection Qualifiers: Urinary tract infection type: acute cystitis Hematuria presence: with hematuria Qualified Code(s): N30.01 - Acute cystitis with hematuria Condition: Good
[2016-07-03 12:00] LABS: ALANINE AMINOTRANSFERASE 80 IU/L (9-52); ALBUMIN 3.1 g/dL (3.5-5.0); ALKALINE PHOSPHATASE 307 IU/L (38-126); ANION GAP 12 mEq/L (8-16); ASPARTATE AMINOTRANSFERASE 47 IU/L (14-46); BILIRUBIN,TOTAL 0.5 mg/dL (0.1-1.4); BILIRUBIN-CONJUGATED 0.3 mg/dL (0.0-0.5); BILIRUBIN-UNCONJUGATED 0.2 mg/dL (0.0-1.1); CALCIUM 9.1 mg/dL (8.5-10.4); CARBON DIOXIDE 20 mEq/l (22-31); CHLORIDE 108 mEq/L (97-110); CREATININE 0.8 mg/dL (0.6-1.0); GLOMERULAR FILTRATION RATE > 60; GLUCOSE 105 mg/dL (70-100); POTASSIUM 4.4 mEq/L (3.5-5.2); SODIUM 140 mEq/L (134-144); TOTAL PROTEIN 6.4 g/dL (6.3-8.2)
[2016-07-03] MEDS ORDERED: KETOROLAC 30 MG/1 ML SDV IVP ONE (12:31)
[2016-07-03] MEDS ORDERED: KETOROLAC 30 MG/1 ML SDV ONE (12:33)
[2016-07-03 12:38] LABS: COLOR YELLOW; LEUKOCYTE ESTERASE,URINE 2+ (NEGATIVE); NITRITE,URINE NEGATIVE (NEGATIVE)
[2016-07-03 12:41] LABS: BACTERIA TRACE /hpf (NONE SEEN); MUCUS TRACE /lpf (NONE-1+); RBC,URINE 25-50 /hpf (0-3); WBC,URINE 50-182 /hpf (0-3)
[2016-07-03] MEDS ORDERED: IOPAMIDOL (ISOVUE 370) 100 ML BTL IV ONE (12:42)
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
[2016-07-03] MEDS ORDERED: HYDROmorphONE/DILAUDID 1 MG/ML SYR IVP PRN (17:01)
[2016-07-03] MEDS ORDERED: BISACODYL 10 MG SUPP PR PRN (17:02)
[2016-07-03] MEDS ORDERED: POLYETHYLENE GLYCOL 3350 17 GM PKT PO PRN (17:02)
[2016-07-03] MEDS ORDERED: LACTULOSE 20 GM/30 ML UDCUP PO PRN (17:02)
[2016-07-03] MEDS ORDERED: MAGNESIUM HYDROXIDE 30 ML UDCUP PO PRN (17:02)
[2016-07-03] MEDS ORDERED: PHENAZOPYRIDINE HCL 100 MG TAB PO ONE (17:03)
[2016-07-03] MEDS: IBUPROFEN 600 MG TAB PO PRN (19:37)
[2016-07-03] MEDS: IRON POLYSAC/IRON HEME 28 MG TAB PO SCH (20:05)
[2016-07-03] MEDS: NITROFURANTOIN MACROBID 100 MG CAP PO SCH (20:05)
[2016-07-03] MEDS: HYDROCODONE/APAP 5/325 TAB PO PRN (20:05)
[2016-07-03] MEDS ORDERED: ONDANSETRON 4 MG/2 ML VIAL IVP PRN (21:25)
[2016-07-03] MEDS: SENNOSIDES/DOCUSATE SODIUM TAB PO SCH (21:58)
[2016-07-03] MEDS ORDERED: LORazepam 1 MG TAB PO PRN (22:00)
[2016-07-04] MEDS: IBUPROFEN 600 MG TAB PO PRN ×4 (01:31→21:33)
[2016-07-04] MEDS: HYDROCODONE/APAP 5/325 TAB PO PRN ×2 (04:04)
[2016-07-04 05:38] VITALS: O2SAT 96
[2016-07-04] MEDS ORDERED: LEVOTHYROXINE 200 MCG TAB PO SCH (06:00)
[2016-07-04] MEDS ORDERED: LEVOTHYROXINE 75 MCG TAB PO SCH (06:00)
[2016-07-04] MEDS: LEVOTHYROXINE 200 MCG TAB PO SCH (06:02)
[2016-07-04] MEDS: LEVOTHYROXINE 75 MCG TAB PO SCH (06:02)
[2016-07-04] MEDS ORDERED: OXYCODONE/APAP 5/325 TAB PO PRN ×2 (07:36)
[2016-07-04] MEDS: NITROFURANTOIN MACROBID 100 MG CAP PO SCH ×2 (09:20→19:52)
[2016-07-04] MEDS: IRON POLYSAC/IRON HEME 28 MG TAB PO SCH ×2 (09:20→19:53)
[2016-07-04] MEDS: SENNOSIDES/DOCUSATE SODIUM TAB PO SCH ×2 (09:21→19:52)
[2016-07-04 11:54] LABS: % IMMATURE GRANULYOCYTES 2.1 % (0.0-1.1); ADD DIFF? NO; ADD MORPH? NO; ADD SCAN? NO; ATYPICAL LYMPHOCYTE FLAG 20 (0-99); FRAGMENT RBC FLAG 0 (0-99); HEMATOCRIT 34.4 % (38.0-47.0); HEMOGLOBIN 11.4 g/dL (12.6-16.3); LEFT SHIFT FLG 20 (0-99); LIPEMIA HEMOLYSIS FLAG 80 (0-99); MEAN CELL HEMOGLOBIN 29.8 pg (27.9-34.1); MEAN CELL HEMOGLOBIN CONCENTR. 33.1 g/dL (32.4-36.7); MEAN CELL VOLUME 90.1 fL (81.5-99.8); MEAN PLATELET VOLUME 10.2 fL (8.7-11.7); PLATELET CLUMPS FLAG 0 (0-99); PLATELET COUNT 288 10^3/uL (150-400); RED BLOOD CELL COUNT 3.82 10^6/uL (4.18-5.33); RED CELL DISTRIBUTION WIDTH 14.6 % (11.5-15.2)
[2016-07-04 13:07] LABS: ALANINE AMINOTRANSFERASE 62 IU/L (9-52); ASPARTATE AMINOTRANSFERASE 36 IU/L (14-46); BILIRUBIN,TOTAL 0.5 mg/dL (0.1-1.4); BILIRUBIN-CONJUGATED 0.4 mg/dL (0.0-0.5); BILIRUBIN-UNCONJUGATED 0.1 mg/dL (0.0-1.1); CREATININE 0.8 mg/dL (0.6-1.0); GLOMERULAR FILTRATION RATE > 60; LACTATE DEHYDROGENASE 659 IU/L (313-618); URIC ACID 6.4 mg/dL (2.5-6.8)
[2016-07-04] MEDS: OXYCODONE/APAP 5/325 TAB PO PRN ×3 (14:48→21:33)
--- NOTE | 2016-07-04 15:31 | SOAPPROG ---
SOAP Progress Note Assessment/Plan: Assessment: HD 2 with readmit for RLQ abd pain and UTI - on Macrobid 6d s/p primary C/S No obvious source of pain but suspect round lig pain - incision normal and uterus fundus normal No sign of systemic infection with normal WBCs without change from 07/03, afeb Borderline B/P, improved PIH panel Plan: D/C approp but pt extremely anxious going back to boarder status, Will observe overnight for B/P. Pain controlled with 1 percocet q 5 hours with ibu q6 hrs. 07/04/16 15:21 Subjective: Pt reports pain better than yesterday am. Pain controlled with 1 percocet q 5 hrs and ibu. Was ask at 4 hours and did not want Percocet yet and had it at 5 hours. Able to amb a bit better. Has been pumping. Good milk production. Bld is light menses amount. urinating fine. Disc psych f/u with risk of PP Depression increased due to hx and has had recent pain increase and fatique. After our visit that felt very supportive and informative and pt very receptive , pt then called out and said I wasn't her usual doc and she called office and said she shouldn't be discharged and pain is just as bad and b/P high. Tried to reassure pt that B/P is not in normal range for her, but not concerning with reassuring labs and she had PIH and we will f/u in one week in the office. We will watch over night to ensure no worsening. Objective: Vital Signs Temp Pulse Resp BP Pulse Ox 36.7 C 106 H 18 149/106 H 96 07/04/16 09:15 07/04/16 10:15 07/04/16 09:15 07/04/16 10:15 07/04/16 09:15 Laboratory Results 07/04/16 11:35 07/04/16 11:35 07/03/16 07/04/16 07/05/16 05:59 05:59 05:59 Intake Total 100 Balance 100 Physical Exam - Physical Exam General Appearance: WD/WN, mild distress, anxiety Abdomen: non-tender (approp post op tenderness, tender on RLQ), soft Pelvic Exam: vaginal bleeding (normal lochia) Extremities: non-tender, pedal edema (moderate) ICD10 Worksheet Patient Problems: Problems Problem Status Onset Abdominal pain Acute Urinary tract infection Acute Hypothyroidism affecting Acute Hypothyroidism Acute Status post primary low transverse section Acute Arrest of dilation, delivered, current hospitalization Acute
[2016-07-04 22:50] VITALS: RESP 20; TEMP 97.9
[2016-07-05 03:25] VITALS: BP 143/90; PULSE 102
[2016-07-05] MEDS: IBUPROFEN 600 MG TAB PO PRN ×2 (08:31→14:37)
[2016-07-05] MEDS: OXYCODONE/APAP 5/325 TAB PO PRN ×2 (08:32→12:45)
[2016-07-05] MEDS: IRON POLYSAC/IRON HEME 28 MG TAB PO SCH (08:32)
[2016-07-05] MEDS: LEVOTHYROXINE 75 MCG TAB PO SCH (08:33)
[2016-07-05] MEDS: LEVOTHYROXINE 200 MCG TAB PO SCH (08:33)
[2016-07-05] MEDS: NITROFURANTOIN MACROBID 100 MG CAP PO SCH (08:33)
[2016-07-05] MEDS: SENNOSIDES/DOCUSATE SODIUM TAB PO SCH (08:34)
[2016-07-05] MEDS ORDERED: PRENATAL VIT 1 EACH TAB PO SCH (09:00)
--- NOTE | 2016-07-05 11:13 | OBPROG ---
OBG Progress Note Assessment/Plan: Assessment: 36 y/o POD #7 s/p LTCS secondary to arrest of dilation and chorioamnionitis with re-admission for right lower quadrant pain Plan: Complete treatment for UTI, Macrobid 100 mg BID x 5 days. Pt has Rx Percocet, Ibuprofen, Macrobid and Levothyroxine. She has consistently had tachycardia and borderline BP with H/o Destinee's. Will check TSH today prior to d/c and may need to adjust her meds. I reviewed s/sx's of pre-eclampsia and she will call this week for these issues. She has follow-up set up @ [facility] for for incision check, BP check and mood follow-up. 07/05/16 11:13 Subjective: Pt is doing much better this am. She has good pain control with Percocet and Ibuprofen and continues to feel more in the right lower quadrant, but not as acute as earlier this wee. She is in good spirits, ready to go home with the baby and she has good support from her partner. She is pumping and trying to breast feed. She is seeing social work today. Objective: 07/04/16 11:35 07/04/16 11:35 Uric Acid 6.4 mg/dL (2.5-6.8) 07/04/16 11:35 Total Bilirubin 0.5 mg/dL (0.1-1.4) 07/04/16 11:35 Conjugated Bilirubin 0.4 mg/dL (0.0-0.5) 07/04/16 11:35 Unconjugated Bilirubin 0.1 mg/dL (0.0-1.1) 07/04/16 11:35 AST 36 IU/L (14-46) 07/04/16 11:35 ALT 62 IU/L (9-52) H 07/04/16 11:35 Lactate Dehydrogenase 659 IU/L (313-618) H 07/04/16 11:35 Temp Pulse Resp BP Pulse Ox 36.6 C 102 H 20 143/90 H 96 07/04/16 20:00 07/05/16 03:24 07/04/16 20:00 07/05/16 03:24 07/04/16 20:00 Uterine Position/Fundal Height: Umbilicus -2 Uterine Tone: Firm - Physical Exam General Appearance: WD/WN, alert, no apparent distress Neck: non-tender, full range of motion, supple Respiratory: chest non-tender, lungs clear, normal breath sounds Cardiac/Chest: regular rate, rhythm Abdomen: normal bowel sounds, incision (c/d/i) Extremities: swelling (2+), Flory's sign (neg) ICD10 Worksheet Patient Problems: Problems Problem Status Onset Abdominal pain Acute Urinary tract infection Acute Arrest of dilation, delivered, current hospitalization Acute Hypothyroidism Acute Hypothyroidism affecting Acute Status post primary low transverse section Acute
== END 2016-07-05 18:30 | disposition home or self-care (01) ==
LOC: FOB 15:35
PROVIDERS: ADMIT Obstetrics & Gynecology; ATTEND Obstetrics & Gynecology
DX: O90.89 Other complications of the puerperium, not elsewhere classified (principal); N39.0 Urinary tract infection, site not specified; R10.31 Right lower quadrant pain
CPT/HCPCS: 74177; 96365; 96375; 99285; G0378; J0696; J1885; Q9967